=== PATIENT | female | born 1955 | race African-American/Black ===

== ENCOUNTER 2016-12-01 05:36 | Day surgery (SDC) | payer OTHER ==
[~2016-12-01] VITALS: Ht 170.2 cm; Wt 75.0 kg
[~2016-12-01 05:36] MED LIST: CARI350 PO; DOCU250C91 PO; FLUT16H NS; FOLI1 PO; HYDR-3971 PO; LOSA25TA21 PO; METO25 PO; NITR0.4T27 SL; OMEP20 PO; RANI150T7 PO; TEMA15CA PO
[2016-12-01] MEDS ORDERED: SODIUM CHLORIDE 0.9% 1,000 ML IV ONE ×2 (06:00→06:06)
[2016-12-01] MEDS ORDERED: FentaNYL CITRATE-PF 100 MCG/2 ML VIAL ONE (07:49)
[2016-12-01] MEDS ORDERED: BUPIVACAINE HCL/PF 0.75% 10 ML VIAL ONE (07:49)
[2016-12-01] MEDS ORDERED: MIDAZOLAM HCL 2 MG/2 ML VIAL ONE ×2 (07:49→08:32)
[2016-12-01] MEDS ORDERED: TRIAMCINOLONE ACETONIDE 40 MG/ML VIAL ONE (07:50)
[2016-12-01] MEDS ORDERED: SODIUM BICARBONATE 50 MEQ/50 ML VIAL ONE (07:50)
[2016-12-01] MEDS ORDERED: IOHEXOL 300 MG/ML 10 ML VIAL ONE (07:50)
[2016-12-01] MEDS ORDERED: LIDOCAINE HCL/PF 1% 30 ML VIAL ONE (07:50)
[2016-12-01] MEDS ORDERED: LIDOCAINE HCL/PF 2% 5 ML VIAL ONE (07:50)
[2016-12-01 07:57] VITALS: BP 159/84
[2016-12-01] MEDS ORDERED: LIDOCAINE 1% 30 ML/SOD BICARB 8.4% 4 ML SQ ONE (08:15)
[2016-12-01] MEDS ORDERED: BUPIVACAINE HCL/PF 0.75% 10 ML VIAL IARTIC ONE (08:15)
[2016-12-01] MEDS ORDERED: LIDOCAINE HCL/PF 2% 5 ML VIAL IARTIC ONE (08:15)
[2016-12-01] MEDS ORDERED: IOHEXOL 300 MG/ML 10 ML VIAL IARTIC ONE (08:15)
[2016-12-01] MEDS ORDERED: TRIAMCINOLONE ACETONIDE 40 MG/ML VIAL IARTIC ONE ×2 (08:15→08:30)
[2016-12-01] MEDS ORDERED: MIDAZOLAM HCL 2 MG/2 ML VIAL IVP ONE ×2 (08:15→08:45)
[2016-12-01] MEDS ORDERED: FentaNYL CITRATE-PF 100 MCG/2 ML VIAL IVP ONE ×2 (08:15→08:45)
[2016-12-01 08:41] VITALS: BP 150/74
[2016-12-01] MEDS ORDERED: HYDROCODONE/ACETAMINOPHEN 10-325 MG TABLET PO ONE (09:30)
== END 2016-12-01 10:25 | disposition home or self-care (01) ==
LOC: SDS 05:36
PROVIDERS: ATTEND Specialist
DX: M54.17 Radiculopathy, lumbosacral region (principal); M17.0 Bilateral primary osteoarthritis of knee; G89.29 Other chronic pain; M54.5 Low back pain; D64.9 Anemia, unspecified; K21.9 Gastro-esophageal reflux disease without esophagitis; M54.30 Sciatica, unspecified side; F17.210 Nicotine dependence, cigarettes, uncomplicated; Z88.8 Allergy status to other drugs, medicaments and biological substances; Z98.890 Other specified postprocedural states; Z86.19 Personal history of other infectious and parasitic diseases; Z86.79 Personal history of other diseases of the circulatory system; Z86.73 Personal history of transient ischemic attack (TIA), and cerebral infarction without residual deficits
CPT/HCPCS: 20610; 64483; 77002; J2250; J3010; J3301; J3490 ×4; J7030; Q9967

== ENCOUNTER 2018-11-06 13:14 | Emergency (ER) | payer BC, MEDICAID ==
[~2018-11-06] VITALS: Ht 162.6 cm; Wt 77.3 kg
[~2018-11-06 13:14] MED LIST changes: +CYCL10 PO; -HYDR-3971 PO; +HYDR-4069 PO; +KETO15I IV; +LEVO500P13 IV; -LOSA25TA21 PO; +LOSA25TA41 PO; -NITR0.4T27 SL; +NITR0.4T50 SL
[2018-11-06] MEDS ORDERED: HYDROCODONE/ACETAMINOPHEN 5-325 MG TABLET PO ONE (14:30)
[2018-11-06 14:40] LABS: APPEARANCE,URINE CLEAR (CLEAR); BILIRUBIN,URINE NEGATIVE (NEGATIVE); GLUCOSE, URINE (UA) NEGATIVE (NEGATIVE); KETONES,URINE NEGATIVE (NEGATIVE); LEUKOCYTE ESTERASE ,URINE NEGATIVE (NEGATIVE); NITRATE,URINE NEGATIVE (NEGATIVE); OCCULT BLOOD,URINE NEGATIVE (NEGATIVE); PH,URINE 6.5 (5.0-8.0); PROTEIN,URINE NEGATIVE (NEGATIVE)
[2018-11-06 15:14] LABS: BASOPHILS % (AUTO) 0.6 % (0.0-2.0); EOSINOPHILS % (AUTO) 1.1 % (1.0-6.0); HEMATOCRIT 35.2 % (36-46); HEMOGLOBIN 11.9 g/dL (12.0-16.0); LYMPHOCYTES # (AUTO) 0.9 K/uL (1.0-4.8); LYMPHOCYTES % (AUTO) 20.1 % (22.0-44.0); MEAN CORPUSCULAR HEMOGLOBIN 35.7 pg (26.0-34.0); MEAN CORPUSCULAR HGB CONC 33.8 G/dL (31.0-37.0); MEAN CORPUSCULAR VOLUME 106 fL (80-100); MONOCYTES # (AUTO) 0.6 K/uL (0.1-1.0); MONOCYTES % (AUTO) 12.6 % (2.0-9.0); NEUTROPHILS % (AUTO) 65.6 % (40.0-70.0); PLATELET COUNT (AUTO) 106 K/uL (150-450); RED BLOOD CELL COUNT(AUTO) 3.33 MIL/uL (4.00-5.20); RED CELL DISTRIBUTION WIDTH 14.5 % (11.5-14.5)
[2018-11-06 15:31] LABS: ANION GAP 10 mmol/L (8-16); CALCIUM, TOTAL 8.8 mg/dL (8.8-10.5); CARBON DIOXIDE 25 mmol/L (22-29); CHLORIDE 106 mmol/L (98-107); CREATININE 0.79 mg/dL (0.60-1.30); GLOMERULAR FILTR. RATE CALC > 60 mL/min (>60); GLUCOSE,RANDOM 111 mg/dL (70-110); POTASSIUM 4.6 mmol/L (3.5-5.1); SODIUM SERUM 141 mmol/L (136-145); UREA NITROGEN, BLOOD 14 mg/dL (7-18)
[2018-11-06 15:40] LABS: B-TYPE NATRIURETIC PEPTIDE 11 pg/mL (0-100)
[2018-11-06 15:55] LABS: ALANINE AMINOTRANSFERASE 54 U/L (12-78); ALBUMIN 2.9 g/dL (3.4-5.0); ALKALINE PHOSPHATASE 139 U/L (46-116); ASPARTATE AMINOTRANSFERASE 82 U/L (15-37); BILIRUBIN,TOTAL 1.3 mg/dL (0.1-1.0); CREATINE KINASE, TOTAL ONLY 526 U/L (26-192); TOTAL PROTEIN, SERUM 6.8 g/dL (6.4-8.2)
[2018-11-06] MEDS ORDERED: CefTRIAXone 1 GM/DEXTROSE 50 ML IV ONE (16:15)
[2018-11-06 17:04] VITALS: BP 136/90
== END 2018-11-06 17:22 | disposition home or self-care (01) ==
LOC: EMS 13:15
DX: R07.89 Other chest pain (principal); H10.9 Unspecified conjunctivitis; H00.036 Abscess of eyelid left eye, unspecified eyelid; I10 Essential (primary) hypertension; I25.2 Old myocardial infarction; F12.90 Cannabis use, unspecified, uncomplicated; Z86.73 Personal history of transient ischemic attack (TIA), and cerebral infarction without residual deficits; Z88.8 Allergy status to other drugs, medicaments and biological substances
CPT/HCPCS: 36415; 71045; 80053; 81003; 82550; 83880; 84484; 85025; 93005; 96365; 99285; J0696

== ENCOUNTER 2018-11-10 11:22 | Emergency (ER) | payer BC, MEDICAID ==
[~2018-11-10] VITALS: Ht 162.6 cm; Wt 75.0 kg
[~2018-11-10 11:22] MED LIST changes: -KETO15I IV; -LEVO500P13 IV
[2018-11-10] MEDS: ONDANSETRON HCL 4 MG/2 ML VIAL IVP ONE ×2 (13:02→14:32)
[2018-11-10] MEDS: MORPHINE SULFATE 4 MG/ML SYRINGE IVP ONE ×2 (13:03→16:36)
[2018-11-10] MEDS: SODIUM CHLORIDE 0.9% 1,000 ML IV ONE (13:03)
[2018-11-10 13:26] LABS: BASOPHILS % (AUTO) 0.5 % (0.0-2.0); EOSINOPHILS % (AUTO) 0 % (1.0-6.0); HEMATOCRIT 37.1 % (36-46); HEMOGLOBIN 12.8 g/dL (12.0-16.0); LYMPHOCYTES # (AUTO) 0.3 K/uL (1.0-4.8); LYMPHOCYTES % (AUTO) 6.6 % (22.0-44.0); MEAN CORPUSCULAR HEMOGLOBIN 35.7 pg (26.0-34.0); MEAN CORPUSCULAR HGB CONC 34.4 G/dL (31.0-37.0); MEAN CORPUSCULAR VOLUME 104 fL (80-100); MONOCYTES # (AUTO) 0.2 K/uL (0.1-1.0); MONOCYTES % (AUTO) 5.2 % (2.0-9.0); NEUTROPHILS # (AUTO) 4.2 K/uL (1.8-7.7); PLATELET COUNT (AUTO) 98 K/uL (150-450); RED BLOOD CELL COUNT(AUTO) 3.57 MIL/uL (4.00-5.20); RED CELL DISTRIBUTION WIDTH 14.6 % (11.5-14.5)
[2018-11-10 13:27] LABS: NEUTROPHILS % (AUTO) 87.7 % (40.0-70.0)
[2018-11-10 13:28] LABS: ANION GAP 10 mmol/L (8-16); CALCIUM, TOTAL 9.6 mg/dL (8.8-10.5); CARBON DIOXIDE 23 mmol/L (22-29); CHLORIDE 100 mmol/L (98-107); CREATININE 1.03 mg/dL (0.60-1.30); GLOMERULAR FILTR. RATE CALC > 60 mL/min (>60); GLUCOSE,RANDOM 121 mg/dL (70-110); POTASSIUM 4.6 mmol/L (3.5-5.1); SODIUM SERUM 133 mmol/L (136-145); UREA NITROGEN, BLOOD 16 mg/dL (7-18)
[2018-11-10 13:34] LABS: ALANINE AMINOTRANSFERASE 64 U/L (12-78); ALBUMIN 3.2 g/dL (3.4-5.0); ALKALINE PHOSPHATASE 140 U/L (46-116); ASPARTATE AMINOTRANSFERASE 92 U/L (15-37); BILIRUBIN,TOTAL 1.5 mg/dL (0.1-1.0); LIPASE 126 U/L (73-393); TOTAL PROTEIN, SERUM 7.7 g/dL (6.4-8.2)
[2018-11-10 13:35] LABS: PROTHROMBIN TIME 10.9 SEC (9.4-11.6)
[2018-11-10 14:00] LABS: APPEARANCE,URINE CLEAR (CLEAR); BILIRUBIN,URINE NEGATIVE (NEGATIVE); GLUCOSE, URINE (UA) NEGATIVE (NEGATIVE); KETONES,URINE NEGATIVE (NEGATIVE); LEUKOCYTE ESTERASE ,URINE NEGATIVE (NEGATIVE); NITRATE,URINE NEGATIVE (NEGATIVE); OCCULT BLOOD,URINE TRACE (NEGATIVE); PH,URINE 7.5 (5.0-8.0); PROTEIN,URINE NEGATIVE (NEGATIVE)
[2018-11-10 14:11] LABS: BACTERIA,URINE None Seen /HPF (None Seen); WBC,URINE 0-2 /HPF (0-5); YEAST,URINE Rare /HPF (None Seen)
[2018-11-10] MEDS: KETOROLAC TROMETHAMINE 30 MG/ML VIAL IVP ONE (14:32)
[2018-11-10] MEDS: HYDROmorphone 2 MG/ML SYRINGE IVP ONE (18:42)
[2018-11-10 20:57] VITALS: BP 165/100
[2018-11-10] MEDS: PIPERACILLIN/TAZO 3.375 GM/D5W 50 ML IV ONE (20:57)
== END 2018-11-10 21:45 | disposition short-term general hospital (02) ==
LOC: EMS 11:22
DX: K80.50 Calculus of bile duct without cholangitis or cholecystitis without obstruction (principal); G89.29 Other chronic pain; M54.5 Low back pain; I10 Essential (primary) hypertension; I25.2 Old myocardial infarction; F12.90 Cannabis use, unspecified, uncomplicated; Z88.8 Allergy status to other drugs, medicaments and biological substances; Z79.899 Other long term (current) drug therapy
CPT/HCPCS: 36415; 74176; 74181; 76705; 80053; 81001; 83690; 85025; 85610; 85730; 87040; 93005; 96361; 96365; 96375; 96376; 99285; J1170; J1885; J2270; J2405; J2543; J7030